=== PATIENT | female | born 1990 | race American Indian/Alaskan Native ===

== ENCOUNTER 2020-03-31 14:30 | Emergency (ER) | payer MEDICAID ==
--- NOTE | 2020-03-31 15:22 | EDM.PDOC ---
ED HPI GENERAL MEDICAL PROBLEM - General Chief Complaint: CAKE TESTER Problem Stated Complaint: POSSIBLE ,BLEEDING Time Seen by Provider: 03/31/20 15:02 Source of Information: Reports: Patient History Limitations: Reports: No Limitations - History of Present Illness INITIAL COMMENTS - FREE TEXT/NARRATIVE: HISTORY AND PHYSICAL: History of present illness: Patient is a 30-year-old female who presents to the emergency room with concerns of a late menses with the possibility of . She states she had her last menstrual period in the beginning of February, she is 1 to 2 weeks late on her menstrual period. She took a test at home, this was negative. She started bleeding today and was concerned as she thought she could have been even though the test was negative. She states she has had miscarriages in the past and wanted to come and get "checked out". She is also concerned as she recently ran out of her blood pressure medications and has not taken them in the last 1 to 2 days. Patient denies any fever, chills, headache, change in vision, syncope or near syncope. Denies any chest pain, back pain, shortness of breath or cough. Denies any vomiting, diarrhea, constipation or dysuria. Denies any excessive bleeding or large clots. Has not noted any blood in urine or stool. Patient has been eating and drinking appropriately. Review of systems: As per history of present illness and below otherwise all systems reviewed and negative. Past medical history: As per history of present illness and as reviewed below otherwise noncontribut ory. Surgical history: As per history of present illness and as reviewed below otherwise noncontributory. Social history: See social history for further information Family history: As per history of present illness and as reviewed below otherwise noncontributory. Physical exam: General: Well developed and well nourished 30 year old female. Alert and orientated x 3. Nontoxic in appearance and in no acute distress. Vital signs are stable and have been reviewed by me. Nursing notes were reviewed. HEENT: Atraumatic, normocephalic, pupils equal and reactive bilaterally, negative for conjunctival pallor or scleral icterus, mucous membranes moist, trachea midline. No drooling or trismus noted. No meningeal signs. No hot potato voice noted. Lungs: Clear to auscultation, breath sounds equal bilaterally. Normal work of breathing, no accessory muscles used. Heart: S1S2, regular rate and rhythm without overt murmur Abdomen: Soft, nondistended, nontender. Negative for masses or costovertebral tenderness. Declines pelvic exam. Skin: Intact, warm, dry. No lesions or rashes noted. Hematologic: No petechiae or purpra. Mucosa appropriate color and normal nail bed color and refill. Extremities: Atraumatic, moves all extremities per self without difficulty or deficits, negative for cords or calf pain. Neurovascular unremarkable. Neuro: Awake, alert, oriented. Cranial nerves II through XII unremarkable. Cerebellum unremarkable. Motor and sensory unremarkable throughout. Exam nonfocal. Psychiatric: Mood and affect are appropriate. Normal thought process. Answering questions appropriately. Notes: Patient states she is out of her blood pressure medications, she has several and although does not know some of the dosing. I do not feel comfortable filling all of these blood pressure medications and therefore we will only refill her lisinopril as she is returning to home in a few days. She states she can have her medications filled then. Lab work is unremarkable. I have talked with the patient about today's findings, in addition to providing specific details for plan of care. Reassessment at the time of disposition demonstrates that the patient is in no acute distress. The patient is stable for discharge, counseling was provided and we discussed in great detail signs and symptoms that would prompt them to return to the Emergency Department. Medication, follow up and supportive care measures were reviewed and discussed. Voices understanding and is agreeable to plan of care. Denies any further questions or concerns at this time. Diagnostics: CBC, CMP, UA, HCGU Therapeutics: None Prescription: Lisinopril (#30) Impression: Encounter for medication refill test, negative Plan: 1. Today your lab work is within normal limits. You are not today. 2. Alternate Tylenol and Ibuprofen as needed for abdominal cramping. 3. We encourage you to follow up with your primary care provider and/or recommended specialist in the next few days for re-evaluation and further care/management. If your symptoms should worsen, new symptoms develop or any of the signs and symptoms we discussed should arise please return to the emergency room or call 911 (if needed). Definitive disposition and diagnosis as appropriate pending reevaluation and review of above. Onset: Today - Related Data Allergies Allergy/AdvReac Type Severity Reaction Status Date / Time No Known Allergies Allergy Verified 03/31/20 15:07 Home Meds: Home Meds HYDROcodone bitartrate [Hydrocodone Bitartrate ER] 5 mg PO BID 03/31/20 [History] Metoprolol Succinate [Toprol XL] 50 mg PO DAILY 03/31/20 [History] Verapamil [Calan] mg PO DAILY 03/31/20 [History] hydrOXYzine HCL [hydrOXYzine] mg PO ASDIRECTED 03/31/20 [History] lisinopriL [Lisinopril] 40 mg PO DAILY 03/31/20 [History] lisinopriL [Lisinopril] 40 mg PO DAILY 30 Days #30 tablet 03/31/20 [Rx] Past Medical History Cardiovascular History: Reports: Hypertension, Other (See Below) Other Cardiovascular History: SVT CAKE TESTER History: Reports: Ectopic - Infectious Disease History Infectious Disease History: Reports: Chicken Pox - Past Surgical History GI Surgical History: Reports: Cholecystectomy Social & Family History - Tobacco Use Tobacco Use Status *Q: Current Every Day Tobacco User Years of Tobacco use: 4 Packs/Tins Daily: 1 - Recreational Drug Use Recreational Drug Use: Yes Recreational Drug Type: Reports: Marijuana/Hashish Recreational Drug Use Frequency: Socially ED ROS GENERAL - Review of Systems Review Of Systems: Comprehensive ROS is negative, except as noted in HPI. ED EXAM, GENERAL - Physical Exam Exam: See Below (See dictation) Course - Vital Signs Last Recorded V/S: Last Vital Signs Temp 97.5 F 03/31/20 15:10 Pulse 74 03/31/20 15:10 Resp 18 03/31/20 15:10 BP 164/104 H 03/31/20 15:10 Pulse Ox 98 03/31/20 15:10 - Orders/Labs/Meds Orders: Active Orders 24 hr Category Date Time Status CMP [COMPREHENSIVE METABOLIC PN,CMP] [CHEM] Stat Lab 03/31/20 15:54 Received Labs: Laboratory Tests 03/31/20 03/31/20 03/31/20 Range/Units 15:15 15:15 15:54 WBC 7.07 (4.0-11.0) K/uL RBC 4.29 L (4.30-5.90) M/uL Hgb 13.1 (12.0-16.0) g/dL Hct 39.9 (36.0-46.0) % MCV 93.0 (80.0-98.0) fL MCH 30.5 (27.0-32.0) pg MCHC 32.8 (31.0-37.0) g/dL RDW Std Deviation 50.3 (28.0-62.0) fl RDW Coeff of Abimael 15 (11.0-15.0) % Plt Count 357 (150-400) K/uL MPV 9.60 (7.40-12.00) fL Neut % (Auto) 60.5 (48.0-80.0) % Lymph % (Auto) 28.3 (16.0-40.0) % [place] % (Auto) 9.6 (0.0-15.0) % Eos % (Auto) 1.3 (0.0-7.0) % Baso % (Auto) 0.3 (0.0-1.5) % Neut # (Auto) 4.3 (1.4-5.7) K/uL Lymph # (Auto) 2.0 (0.6-2.4) K/uL [place] # (Auto) 0.7 (0.0-0.8) K/uL Eos # (Auto) 0.1 (0.0-0.7) K/uL Baso # (Auto) 0.0 (0.0-0.1) K/uL Nucleated RBC % 0.0 /100WBC Nucleated RBCs # 0 K/uL Urine Color YELLOW Urine Appearance CLEAR Urine pH 6.0 (5.0-8.0) Ur Specific [place] 1.025 (1.001-1.035) Urine Protein NEGATIVE (NEGATIVE) mg/dL Urine Glucose (UA) NEGATIVE (NEGATIVE) mg/dL Urine Ketones NEGATIVE (NEGATIVE) mg/dL Urine Occult Blood SMALL H (NEGATIVE) Urine Nitrite NEGATIVE (NEGATIVE) Urine Bilirubin NEGATIVE (NEGATIVE) Urine Urobilinogen 0.2 (<2.0) EU/dL Ur Leukocyte Esterase NEGATIVE (NEGATIVE) Urine RBC 1-2 (0-2/HPF) Urine WBC 0-1 (0-5/HPF) Ur Epithelial Cells RARE (NONE-FEW) Urine Bacteria RARE (NEGATIVE) Urine HCG, Qual NEGATIVE (NEGATIVE) Departure - Departure Time of Disposition: 16:17 Disposition: Home, Self-Care 01 Clinical Impression: Encounter for medication refill, test negative - Discharge Information Prescriptions: lisinopriL [Lisinopril] 40 mg PO DAILY 30 Days #30 tablet Instructions: Dysmenorrhea, [id number] Referrals: PCP,Not In Area [Primary Care Provider] - Forms: ED Department Discharge Additional Instructions: The following information is given to patients seen in the emergency department who are being discharged to home. This information is to outline your options for follow-up care. We provide all patients seen in our emergency department with a follow-up referral. The need for follow-up, as well as the timing and circumstances, are variable depending upon the specifics of your emergency department visit. If you don't have a primary care physician on staff, we will provide you with a referral. We always advise you to contact your personal physician following an emergency department visit to inform them of the circumstance of the visit and for follow-up with them and/or the need for any referrals to a consulting specialist. The emergency department will also refer you to a specialist when appropriate. This referral assures that you have the opportunity for follow-up care with a specialist. All of these measure are taken in an effort to provide you with optimal care, which includes your follow-up. Under all circumstances we always encourage you to contact your private physician who remains a resource for coordinating your care. When calling for follow-up care, please make the office aware that this follow-up is from your recent emergency room visit. If for any reason you are refused follow-up, please contact the [facility] Emergency Department at and asked to speak to the emergency department charge nurse. [facility] Primary Care [address] [place] [id number] [facility] [address] [place] [id number] Thank you for choosing the [facility] emergency department in [place] for your medical needs today. It was a pleasure caring for you. Today you were seen in the emergency department for vaginal bleeding. 1. Today your lab work is within normal limits. You are not today. 2. Alternate Tylenol and Ibuprofen as needed for abdominal cramping. 3. We encourage you to follow up with your primary care provider and/or recommended specialist in the next few days for re-evaluation and further care/management. If your symptoms should worsen, new symptoms develop or any of the signs and symptoms we discussed should arise please return to the emergency room or call 911 (if needed). Sepsis Event Note (ED) - Evaluation Sepsis Screening Result: No Definite Risk - Focused Exam Vital Signs: Vital Signs Temp Pulse Resp BP Pulse Ox 03/31/20 15:10 97.5 F 74 18 164/104 H 98 - My Orders Last 24 Hours: My Active Orders 03/31/20 15:54 CMP [COMPREHENSIVE METABOLIC PN,CMP] [CHEM] Stat - Assessment/Plan Last 24 Hours: My Active Orders 03/31/20 15:54 CMP [COMPREHENSIVE METABOLIC PN,CMP] [CHEM] Stat
[2020-03-31 16:35] LABS: BLOOD UREA NITROGEN,BUN 12 mg/dL (7.0-18.0); CARBON DIOXIDE,CO2 21.7 mmol/L (21.0-32.0); CHLORIDE,CL 105 mmol/L (98-107); GLUCOSE RANDOM 89 mg/dL (74-106); POTASSIUM,K 3.9 mmol/L (3.5-5.1); SODIUM,NA 138 mmol/L (136-145)
== END 2020-03-31 16:48 | disposition home or self-care (01) ==
LOC: MW.ED 14:30
DX: Z32.02 Encounter for pregnancy test, result negative (principal); Z76.0 Encounter for issue of repeat prescription; I10 Essential (primary) hypertension; F17.210 Nicotine dependence, cigarettes, uncomplicated; Z90.49 Acquired absence of other specified parts of digestive tract; Z79.899 Other long term (current) drug therapy
CPT/HCPCS: 36415; 80053; 81001; 81025; 85025; 99282

== ENCOUNTER 2020-04-21 11:17 | Emergency (ER) | payer MEDICAID ==
--- NOTE | 2020-04-21 12:02 | EDM.PDOC ---
ED HPI GENERAL MEDICAL PROBLEM - General Chief Complaint: Lower Extremity Injury/Pain Stated Complaint: LEFT FOOT INJURY Time Seen by Provider: 04/21/20 11:18 Source of Information: Reports: Patient History Limitations: Reports: No Limitations - History of Present Illness INITIAL COMMENTS - FREE TEXT/NARRATIVE: HISTORY AND PHYSICAL: History of present illness: She is a 30-year-old female who presents to the emergency room today with concern of left foot injury that occurred yesterday afternoon. Patient states that she was walking down a flight of stairs when she slipped and her left foot landed under her. Patient denies any head injury or trauma or loss of consciousness. Patient states she has been able to bear weight on the extremity but does have pain of her foot with doing so. Patient states that she wrapped her foot up with an Jack wrap and has been elevating it overnight. Patient states she decided to come to the emergency room today when she was still having discomfort with ambulation of her foot. Patient denies any other injuries or any other associated symptoms. Patient denies fever, chills, chest pain, shortness of breath, or cough. Denies headache, neck stiff ness, change in vision, syncope, or near syncope. Denies nausea, vomiting, abdominal pain, diarrhea, constipation, or dysuria. Has not noted any blood in urine or stool. Patient has been eating and drinking appropriately. Review of systems: As per history of present illness and below otherwise all systems reviewed and negative. Past medical history: As per history of present illness and as reviewed below otherwise noncontributory. Surgical history: As per history of present illness and as reviewed below otherwise noncontributory. Social history: See social history for further information Family history: As per history of present illness and as reviewed below otherwise noncontributory. Physical exam: General: Patient is alert, oriented, and in no acute distress. Patient sitting comfortably on exam table. HEENT: Atraumatic, normocephalic, pupils equal and reactive bilaterally, negative for conjunctival pallor or scleral icterus, mucous membranes moist, TMs normal bilaterally, throat clear, neck supple, nontender, trachea midline. No drooling or trismus noted. No meningeal signs. No hot potato voice noted. Lungs: Clear to auscultation, breath sounds equal bilaterally, chest nontender. Heart: S1S2, regular rate and rhythm without overt murmur Abdomen: Soft, nondistended, nontender. Negative for masses or hepatosplenomegaly. Negative for costovertebral tenderness. Pelvis: Stable nontender. Genitourinary: Deferred. Rectal: Deferred. Skin: Intact, warm, dry. No lesions or rashes noted. Extremities: No obvious deformity of the left or right lower extremities. Patient does have full range of motion of bilateral lower extremities without pain or difficulty. Patient does have mild discomfort with palpation of the medial volar left foot without obvious deformity. Dorsalis pedis and posterior tibial pulses are grossly intact of the left lower extremity with capillary refill less than 2 seconds. Patient does have intact sensation to light and deep touch of the complete left lower extremity. Otherwise, atraumatic, negative for cords or calf pain. Neurovascular unremarkable. Neuro: Awake, alert, oriented. Cranial nerves II through XII unremarkable. Cerebellum unremarkable. Motor and sensory unremarkable throughout. Exam nonfocal. Notes: Signs and symptoms that would prompt return to the ED thoroughly discussed with patient. Discussed importance for follow-up with a fermenter operator. Voices understanding and is agreeable to plan of care. Denies any further questions or concerns at this time. Diagnostics: Foot and ankle x-ray Therapeutics: posterior short splint placed by nursing staff/crutches for left. For fracture stabilization until follow up with podiatry Prescription: None Impression: 5th metatarsal fracture, left Plan: 1. Rest, ice, elevate the affected extremity. You can apply ice 15 minutes on, 15 minutes off. To be non weight bearing until follow up with podiatry. Keep splint on until podiatry follow up. 2. Tylenol and/or Ibuprofen as directed for pain management or discomfort. 3. Follow up with the podiatry provider as discussed. Return to the ED as needed and as discussed. Definitive disposition and diagnosis as appropriate pending reevaluation and review of above. Left Foot Pain Score (Numeric/FACES): 10 - Related Data Allergies Allergy/AdvReac Type Severity Reaction Status Date / Time No Known Allergies Allergy Verified 03/31/20 15:07 Home Meds: Home Meds HYDROcodone bitartrate [Hydrocodone Bitartrate ER] 5 mg PO BID 03/31/20 [History] Metoprolol Succinate [Toprol XL] 50 mg PO DAILY 03/31/20 [History] Verapamil [Calan] mg PO DAILY 03/31/20 [History] hydrOXYzine HCL [hydrOXYzine] mg PO ASDIRECTED 03/31/20 [History] lisinopriL [Lisinopril] 40 mg PO DAILY 03/31/20 [History] lisinopriL [Lisinopril] 40 mg PO DAILY 30 Days #30 tablet 03/31/20 [Rx] Past Medical History Cardiovascular History: Reports: Hypertension, Other (See Below) Other Cardiovascular History: SVT GRIPS History: Reports: Ectopic Neurological History: Reports: Seizure - Infectious Disease History Infectious Disease History: Reports: Chicken Pox - Past Surgical History GI Surgical History: Reports: Cholecystectomy Social & Family History - Tobacco Use Tobacco Use Status *Q: Current Every Day Tobacco User Years of Tobacco use: 5 Packs/Tins Daily: 1 - Caffeine Use Caffeine Use: Reports: Coffee, Soda, Tea - Recreational Drug Use Recreational Drug Type: Reports: Marijuana/Hashish Recreational Drug Use Frequency: Weekly Review of Systems - Review of Systems Review Of Systems: Comprehensive ROS is negative, except as noted in HPI. ED EXAM, GENERAL - Physical Exam Exam: See Below (see dictation) Course - Vital Signs Last Recorded V/S: Last Vital Signs Temp 96.4 F L 04/21/20 13:09 Pulse 81 04/21/20 13:09 Resp 18 04/21/20 13:09 BP 129/75 04/21/20 13:09 Pulse Ox 97 04/21/20 13:09 - Orders/Labs/Meds Orders: Active Orders 24 hr Category Date Time Status DME for Discharge [COMM] Stat Oth 04/21/20 12:43 Ordered Departure - Departure Time of Disposition: 12:47 Disposition: Home, Self-Care 01 Clinical Impression: Fracture of 5th metatarsal Qualifiers: Encounter type: initial encounter Fracture type: closed Fracture alignment: nondisplaced - Discharge Information Instructions: Cast or Splint Care, Adult, [id number], Metatarsal Fracture Referrals: PCP,None [Primary Care Provider] - Tariq Balderas DPM [Physician] - Forms: ED Department Discharge Additional Instructions: The following information is given to patients seen in the emergency department who are being discharged to home. This information is to outline your options for follow-up care. We provide all patients seen in our emergency department with a follow-up referral. The need for follow-up, as well as the timing and circumstances, are variable depending upon the specifics of your emergency department visit. If you don't have a primary care physician on staff, we will provide you with a referral. We always advise you to contact your personal physician following an emergency department visit to inform them of the circumstance of the visit and for follow-up with them and/or the need for any referrals to a consulting specialist. The emergency department will also refer you to a specialist when appropriate. This referral assures that you have the opportunity for follow-up care with a specialist. All of these measure are taken in an effort to provide you with optimal care, which includes your follow-up. Under all circumstances we always encourage you to contact your private physician who remains a resource for coordinating your care. When calling for follow-up care, please make the office aware that this follow-up is from your recent emergency room visit. If for any reason you are refused follow-up, please contact the [facility] Emergency Department at and asked to speak to the emergency department charge nurse. [facility] Primary Care [address] [place] [address] [address] [facility], Dr. Balderas, Podiatry [address] [place] [address] 1. Rest, ice, elevate the affected extremity. You can apply ice 15 minutes on, 15 minutes off. To be non weight bearing until follow up with podiatry. Keep splint on until podiatry follow up. 2. Tylenol and/or Ibuprofen as directed for pain management or discomfort. 3. Follow up with the podiatry provider as discussed. Return to the ED as needed and as discussed. Sepsis Event Note (ED) - Evaluation Sepsis Screening Result: No Definite Risk - Focused Exam Vital Signs: Vital Signs Temp Pulse Resp BP Pulse Ox 04/21/20 13:09 96.4 F L 81 18 129/75 97 04/21/20 12:51 57 L 16 135/71 97 04/21/20 11:31 96.1 F L 88 18 133/91 H 98 - My Orders Last 24 Hours: My Active Orders 04/21/20 12:43 DME for Discharge [COMM] Stat - Assessment/Plan Last 24 Hours: My Active Orders 04/21/20 12:43 DME for Discharge [COMM] Stat
--- NOTE | 2020-04-21 12:43 | CR ---
INDICATION: Left ankle and foot pain for 1 day. TECHNIQUE: Three views of the left ankle. COMPARISON: Left foot radiographs 04/21/2020. FINDINGS: There is a transverse fracture of the proximal 5th metatarsal. No ankle fracture or ankle joint effusion. The joint spaces are preserved. IMPRESSION: Acute nondisplaced fracture of the 5th metatarsal seen best on the same day foot radiographs. Dictated by Risa Holloway MD @ Apr 21 2020 12:38PM Signed by Dr. Risa Holloway @ Apr 21 2020 12:41PM
--- NOTE | 2020-04-21 12:43 | CR ---
HISTORY: Ankle and foot pain. COMPARISON: None. FINDINGS: Two views of the left foot. There is an acute nondisplaced fracture of the proximal 5th metatarsal. The joint spaces are preserved. No erosions. Soft tissues are unremarkable. Dictated by Marielena Nieto MD @ Apr 21 2020 12:41PM Signed by Dr. Marielena Nieto @ Apr 21 2020 12:41PM
== END 2020-04-21 13:09 | disposition home or self-care (01) ==
LOC: MW.ED 11:17
DX: S92.355A Nondisplaced fracture of fifth metatarsal bone, left foot, initial encounter for closed fracture (principal); I10 Essential (primary) hypertension; F17.210 Nicotine dependence, cigarettes, uncomplicated; Z79.899 Other long term (current) drug therapy; W10.8XXA Fall (on) (from) other stairs and steps, initial encounter; Y93.01 Activity, walking, marching and hiking
CPT/HCPCS: 29515; 73610-26-LT; 73610-LT; 73620-26-LT; 73620-LT; 99283-25